=== PATIENT | male | born 1945 | race Caucasian/White ===

== ENCOUNTER 2016-09-21 22:58 | Inpatient (IN) | payer OTHER ==
[~2016-09-21] VITALS: Ht 162.6 cm; Wt 101.0 kg
[~2016-09-21 22:58] MED LIST: ACTOS30 MG PO; ASPIRIN81 M2 PO; FUROSEMIDE20 MG PO; LIPITOR40 MG PO; LISINOPRIL20 MG PO; LO-DOSE ASPIRIN81 M2 PO; LOTREL 5/201 CAPSULE PO; MOBIC7.5 MG PO; NEURONTIN100 MG PO; NEURONTIN300 MG PO; NITROSTAT0.4 MG SL; NORCO 5/3251 TABLET PO; PROVENTIL,2.5 MG/3 M IH; VENTOLIN HFA18 GM IH
[2016-09-21 23:37] LABS: HEMATOCRIT 39.4 % (38.0-50.0); MCH 31.8 PG (29.0-34.0); MCHC 32.2 G/DL (30.0-36.0); MCV 98.5 FL (86-99); MEAN PLAT.VOLUME 9.9 uM^3 (9.0-12.4); PLATELET COUNT 188 K/uL (156-360); RBC DIS.WIDTH-CV 14.3 % (11.8-14.6); RBC DIS.WIDTH-SD 50.2 % (39-53); WHITE BLOOD COUNT 5.1 K/uL (4.1-10.2)
[2016-09-21 23:49] LABS: CHLORIDE 110 mEq/L (99-109); POTASSIUM 4.7 mEq/L (3.7-5.4); SODIUM 146 mEq/L (136-147)
[2016-09-21 23:51] LABS: GLUCOSE 131 mg/dL (70-99)
[2016-09-21 23:52] LABS: ANION GAP 11 MEQ/L (2-14)
[2016-09-21 23:55] LABS: GFR ESTIMATE (CALCULATED) > 59 mL/min/; UREA NITROGEN (BUN) 18 mg/dL (9-23)
[2016-09-21 23:58] LABS: BASE EXCESS 5.8 mEq/L (-3 to +3); BICARBONATE 30.6 mEq/L (22-26); CARBOXY HGB 1.8 % (0-5); METHEMOGLOBIN 1.2 % (0-1.5); PCO2 44 mm Hg (35-45); PO2 73 mm Hg (80-100); pH 7.45 (7.35-7.45)
[2016-09-21 23:59] LABS: COMMENTS - BLOOD GASES C+; FI02 21 %; SITE RR; TOTAL RESP RATE 23 resp/min
[2016-09-22 00:01] LABS: TROP-I INTERPRETATION NEGATIVE; TROPONIN-I 0.01 ng/mL (0.0-0.30)
[2016-09-22] MEDS ORDERED: DUONEB 2.5-0.5 M3 ML AEROSOL (00:48)
[2016-09-22] MEDS ORDERED: TYLENOL EXTRA500 MG PO (00:49)
[2016-09-22] MEDS ORDERED: NEURONTIN100 MG PO (00:49)
[2016-09-22] MEDS ORDERED: FUROSEMIDE20 MG PO (00:49)
[2016-09-22 04:08] VITALS: BP 146/82
[2016-09-22 06:10] LABS: CHLORIDE 107 mEq/L (99-109); SODIUM 146 mEq/L (136-147)
[2016-09-22 06:11] LABS: GLUCOSE 99 mg/dL (70-99)
[2016-09-22 06:13] LABS: ANION GAP 9 MEQ/L (2-14)
[2016-09-22 06:15] LABS: GFR ESTIMATE (CALCULATED) > 59 mL/min/
[2016-09-22 06:16] LABS: UREA NITROGEN (BUN) 17 mg/dL (9-23)
[2016-09-22 06:17] LABS: POTASSIUM 3.6 mEq/L (3.7-5.4)
[2016-09-22 06:20] LABS: TROP-I INTERPRETATION NEGATIVE; TROPONIN-I 0.02 ng/mL (0.0-0.30)
[2016-09-22 07:33] VITALS: BP 184/80
[2016-09-22 08:09] LABS: INTERNAL CONTROL VALID? YES
[2016-09-22 11:35] VITALS: BP 153/73
[2016-09-22 12:38] LABS: TROP-I INTERPRETATION NEGATIVE; TROPONIN-I < 0.01 ng/mL (0.0-0.30)
[2016-09-22 16:30] VITALS: BP 137/75
[2016-09-22 19:40] VITALS: BP 144/73
[2016-09-23 00:01] VITALS: BP 130/68
[2016-09-23 04:13] VITALS: BP 144/67
[2016-09-23 07:48] VITALS: BP 132/67
[2016-09-23 09:39] LABS: ANION GAP 12 MEQ/L (2-14); CHLORIDE 99 MEQ/L (99-109); GFR ESTIMATE (CALCULATED) > 59 mL/min/; GLUCOSE 131 mg/dL (70-99); SAMPLE HEMOLYSIS CHECK 0; SAMPLE ICTERIC CHECK 0; SAMPLE LIPEMIA CHECK 0; SODIUM 141 MEQ/L (136-147); UREA NITROGEN (BUN) 23 mg/dL (9-23)
[2016-09-23 09:42] LABS: POTASSIUM 4.4 MEQ/L (3.7-5.4)
[2016-09-23] MEDS ORDERED: LISINOPRIL20 MG PO (15:24)
[2016-09-23] MEDS ORDERED: FUROSEMIDE40 MG PO (15:25)
[2016-09-23 16:12] VITALS: BP 122/62
[2016-09-23] MEDS ORDERED: LOTREL 5/201 CAPSULE PO (16:13)
== END 2016-09-23 16:32 | disposition home or self-care (01) | DRG 292 ==
LOC: EME 22:58 → 5SOUTH 09-22 02:06 → EDOF 09-22 02:06 → 5SOUTH 09-22 03:49
PROVIDERS: Emergency Medicine; Family Medicine; Hospitalist
DX: I11.0 Hypertensive heart disease with heart failure (principal); J44.1 Chronic obstructive pulmonary disease with (acute) exacerbation; I50.33 Acute on chronic diastolic (congestive) heart failure; R07.89 Other chest pain; E78.5 Hyperlipidemia, unspecified; E11.9 Type 2 diabetes mellitus without complications; I35.0 Nonrheumatic aortic (valve) stenosis; I27.2 Other secondary pulmonary hypertension; M19.90 Unspecified osteoarthritis, unspecified site; E66.9 Obesity, unspecified; Z68.38 Body mass index [BMI] 38.0-38.9, adult; Z85.828 Personal history of other malignant neoplasm of skin; Z87.891 Personal history of nicotine dependence; Z79.82 Long term (current) use of aspirin
CPT/HCPCS: 36600; 71020; 71250; 80048; 82803; 83605; 83880; 84484; 85027; 85379; 87040; 87449; 93005; 94640; 94640 76; 99202; 99281; 99285; J0696; J1644; J1885; J1940; J1956; J7050

== ENCOUNTER 2017-05-11 22:06 | Inpatient (IN) | payer OTHER ==
[~2017-05-11] VITALS: Ht 162.6 cm; Wt 86.4 kg
[~2017-05-11 22:06] MED LIST changes: +DUONEB 2.5-0.5 M3 ML AEROSOL; +FUROSEMIDE40 MG PO; +IRON325 M1 PO; +TRULICITY0.75 MG/0. SC; +TYLENOL EXTRA500 MG PO
[2017-05-12 07:33] LABS: POINT-OF-CARE METER ID UU14174212
[2017-05-12 07:39] VITALS: BP 175/83
[2017-05-12 12:10] LABS: POINT-OF-CARE METER ID UU13113675
[2017-05-12 20:17] VITALS: BP 135/69
[2017-05-13 00:12] VITALS: BP 130/67
[2017-05-13 04:20] VITALS: BP 117/74
[2017-05-13 06:40] LABS: HEMATOCRIT 41.2 % (38.0-50.0); MCV 93.4 FL (86-99)
[2017-05-13 07:06] LABS: ANION GAP 10 MEQ/L (2-14); CHLORIDE 110 MEQ/L (99-109); GFR ESTIMATE (CALCULATED) > 59 mL/min/; GLUCOSE 120 mg/dL (70-99); POTASSIUM 4.4 MEQ/L (3.7-5.4); SAMPLE HEMOLYSIS CHECK 0; SAMPLE ICTERIC CHECK 0; SAMPLE LIPEMIA CHECK 0; SODIUM 141 MEQ/L (136-147); UREA NITROGEN (BUN) 13 mg/dL (9-23)
[2017-05-13 08:15] VITALS: BP 148/79
[2017-05-13] MEDS ORDERED: OXYCODONE HCL5 MG PO (10:28)
[2017-05-13] MEDS ORDERED: ELIQUIS2.5 MG PO (10:28)
[2017-05-13] MEDS ORDERED: CELECOXIB200 MG PO (10:28)
[2017-05-13 15:54] VITALS: BP 128/60
[2017-05-13 23:15] VITALS: BP 139/67
[2017-05-14 06:04] LABS: HEMATOCRIT 35.6 % (38.0-50.0); MCV 94.9 FL (86-99)
[2017-05-14 07:50] VITALS: BP 159/72
== END 2017-05-14 14:32 | DRG 470 ==
LOC: ENRESERV 22:06 → 2SOUTH 05-12 06:38 → 3EAST 05-12 06:38 → 2SOUTH 05-12 08:40 → ENRESERV 05-12 15:32 → 2SOUTH 05-12 15:53 → 3EAST 05-12 17:13
PROVIDERS: Orthopaedic Surgery
PROC: 0SRD0J9 Replacement of Left Knee Joint with Synthetic Substitute, Cemented, Open Approach (ICD-10-PCS; principal; 2017-05-12)
DX: M17.12 Unilateral primary osteoarthritis, left knee (principal); I11.0 Hypertensive heart disease with heart failure; I50.9 Heart failure, unspecified; J44.9 Chronic obstructive pulmonary disease, unspecified; E11.9 Type 2 diabetes mellitus without complications; E78.00 Pure hypercholesterolemia, unspecified; Z86.73 Personal history of transient ischemic attack (TIA), and cerebral infarction without residual deficits; M85.88 Other specified disorders of bone density and structure, other site; Z87.891 Personal history of nicotine dependence
CPT/HCPCS: 80048; 82948; 85014; 85018; 93005; C1713; J0131; J0690; J1100; J1885; J2250; J2405; J2795; J7030; J7050